=== PATIENT | male | born 1965 | race African-American/Black ===

== ENCOUNTER 2023-12-07 11:28 | Day surgery (SDC) | payer MEDICARE ==
[~2023-12-07] VITALS: Ht 185.4 cm; Wt 104.3 kg
[2023-12-07] MEDS ORDERED: MIDAZOLAM 5 MG/5 ML VIAL ONE (13:14)
[2023-12-07] MEDS ORDERED: fentaNYL citrate 0.05 MG/ML VIAL ONE (13:15)
[2023-12-07] MEDS: MIDAZOLAM 2 MG/2 ML VIAL IVP ONE (13:21)
[2023-12-07] MEDS: fentaNYL citrate 0.05 MG/ML VIAL IVP ONE (13:22)
[2023-12-07] MEDS: LIDOCAINE 2% 100 MG/5 ML UJET TP ONE (13:28)
[2023-12-07] MEDS ORDERED: SIMETHICONE 40 MG/0.6 ML ONE (14:15)
== END 2023-12-07 14:35 | disposition home or self-care (01) ==
LOC: MDS 11:28 → MMU 11:29 → MDS 14:35
PROVIDERS: ATTEND Internal Medicine Gastroenterology
DX: Z12.11 Encounter for screening for malignant neoplasm of colon (principal); K63.5 Polyp of colon; K57.30 Diverticulosis of large intestine without perforation or abscess without bleeding; I10 Essential (primary) hypertension; E78.00 Pure hypercholesterolemia, unspecified; Z79.899 Other long term (current) drug therapy
CPT/HCPCS: 45385; 93005; J2250; J3010